=== PATIENT | female | born 1960 | race Caucasian/White ===

== ENCOUNTER 2024-05-24 08:15 | Outpatient (AMB) | payer MEDICAID, SELFPAY ==
--- NOTE | 2024-05-24 08:22 | ORTHONT_ITS ---
Vital signs 05/24/24 08:23 Height 1.55 m Height Method Stated Weight 73.227 kg Weight Measurement Method Standing Scale BMI 30.4 BP 161/86 H Blood Pressure Source Automatic Cuff Blood Pressure Location Right Upper Arm Position Sitting Respiration 18 Pulse 76 Pulse Source Monitor Temp 97.6 F Temp Source Temporal Artery Scan Pulse Oximetry (%) 95 Oxygen Delivery Method Room Air Med/Allergies Allergies & Medications Allergies No Known Allergies Allergy (Verified 05/24/24 08:24) Medication Reconciliation naproxen 500 mg tablet 500 mg PO BID PRN pain #30 tabs 03/16/20 [Rx Confirmed 05/24/24] Subjective Visit Visit for: new patient, hip and knee Immunization / Flu Flu Vaccine in the Last 12 Months: No Flu Vaccine Exclusion Criteria: Refused by Patient History of Present Illness Chief complaint: LEFT KNEE PAIN/LEFT HIP Jennifer is a pleasant 63-year-old female with left knee pain. This occurred 3 years ago after a patella fracture. She reports continued knee pain since then. She can only bend her knee about 40 degrees what she says. She has tried physical therapy, brace, injections, and Voltaren. The last x-rays I have are from 4 years ago Pain Pain level (0-10): 7 Pain duration: WITH MOVEMENT/BENDING Pain location: inside (medial) and outside (lateral) Pain quality: sharp, dull, aching, burning, shocking, electric and tingling Pain timing: night, increases with activity and stairs Associated signs & symptoms: none Ambulatory data Ambulatory device: other (specify) (KNEE BRACE) Treatments Number of previous injections: 1 Improvement with previous injections: No Number of Physical Therapy sessions: 12 Improvement with PT: No Improvement with NSAIDS: no Review of Systems Review of Systems: All systems negative unless otherwise noted in HPI. Exam Exam Patient is in no acute distress and is cooperative with the examination today. Breathing is nonlabored. Patient has a normal mood and affect. Bilateral extremities were evaluated and demonstrates sensation intact to light touch. Palpable pedal pulses are present. No significant edema is present. Bilateral hips were examined. The patient has no pain with log roll of the hips. Internal rotation to 30 degrees and external rotation to 30 degrees is painless. Negative FADIR. Right knee was examined today. The right knee is in reasonable alignment. Range of motion from 0-120 degrees. Knee is stable to varus and valgus as well as AP translation with <5mm. Patient has a negative McMurrays. There is no pain with patellofemoral compression and no crepitus noted. The knee is nontender to palpation. Left knee was examined today. Left knee range of motion is from 20 to 50 degrees. She is tender to palpation anteriorly. Extensor mechanism is intact Assessment and Plan Problem List (1) Pain in left knee: Status: Acute Plan: Patient is a 63-year-old female with left knee pain and a prior patella frac ture. She did not get surgery. This occurred 3 years ago and she has had persistent knee pain since then. We will need current x-rays to see what her knee looks like. A lot of her pain appears to be anterior. We will discuss different treatment options depending on what the x-rays show Office Procedures GNS Level of Care Nursing/Assessment Patient Status: Initial/New Patient Nursing Assessment/Reassesment: Medication Reconciliation, Update PMH in EMR and Vital Signs Coordination of Care: Complex Care and Chronic Disease 1-5, Education Complex Pt/Fam, Consent,records obtained, informed consent, 1 Ins Authorization, Lab and Imaging orders, Results/Orders obtained and Staff clarify orders New Patient Charge New Patient Point Assignment: 1124 New Patient Point Charge: [employer] MA[employer]GER Level 4 ([id number]) Past Medical History Past Medical History Have you ever been diagnosed with any of the following: Cardiology Problems Hypercholesterolemia: Yes Congestive Heart Failure: No Respiratory Problems Chronic Obstructive Pulmonary Disease (COPD): No Smoking: Yes (10 YEARS) Smoking Exposure: Yes Genital/Urinary Problems Renal Disease: No Endocrine Problems Diabetes Mellitus Type 1: No Diabetes Mellitus Type 2: No
[2024-05-24 08:23] VITALS: BP 161/86; PULSE 76; RESP 18; TEMP 36.4; O2SAT 95; BMI 30.4
== END 2024-05-24 08:39 | disposition home or self-care (01) ==
PROVIDERS: PCP Registered Nurse Home Health; Referring Provider Registered Nurse Home Health; Supervising Provider Orthopaedic Surgery Adult Reconstructive Orthopaedic Surgery; Visit Provider Orthopaedic Surgery Adult Reconstructive Orthopaedic Surgery
DX: M25.562 Pain in left knee (principal); S82.002D Unspecified fracture of left patella, subsequent encounter for closed fracture with routine healing; X58.XXXD Exposure to other specified factors, subsequent encounter; E78.00 Pure hypercholesterolemia, unspecified
CPT/HCPCS: 99204; G0463

== ENCOUNTER 2024-06-04 13:58 | Outpatient (AMB) | payer MEDICAID, SELFPAY ==
[2024-06-04 14:23] VITALS: BP 131/81; PULSE 84; RESP 19; TEMP 36.4; O2SAT 98; BMI 30.4
--- NOTE | 2024-06-04 14:23 | PD.ORTHCLVIS ---
Vital signs 06/04/24 14:23 Height 1.55 m Height Method Stated Weight 73.198 kg Weight Measurement Method Standing Scale BMI 30.4 BP 131/81 H Blood Pressure Source Automatic Cuff Blood Pressure Location Left Upper Arm Position Sitting Respiration 19 Pulse 84 Pulse Source Monitor Temp 97.5 F Temp Source Temporal Artery Scan Pulse Oximetry (%) 98 Oxygen Delivery Method Room Air Med/Allergies Allergies & Medications Allergies No Known Allergies Allergy (Verified 06/04/24 14:23) Medication Reconciliation naproxen 500 mg tablet 500 mg PO BID PRN pain #30 tabs 03/16/20 [Rx Confirmed 06/04/24] Subjective Visit Visit for: follow up visit, hip, knee and x-rays (results) Immunization / Flu Flu Vaccine in the Last 12 Months: No Flu Vaccine Exclusion Criteria: No Exclusion Criteria History of Present Illness Chief complaint: xray results/f.u knee/hip pain Jennifer is a pleasant 63-year-old female with left knee pain. This occurred 3 years ago after a patella fracture. She reports continued knee pain since then. She can only bend her knee about 40 degrees what she says. She has tried physical therapy, brace, injections, and Voltaren. Pain Pain level (0-10): 8 Pain duration: on and off Pain location: inside (medial) Pain quality: aching Pain timing: increases with activity Associated signs & symptoms: none Ambulatory data Ambulatory device: other (specify) (knee brace) Treatments Number of previous injections: 1 Improvement with previous injections: No Number of Physical Therapy sessions: 12 Improvement with PT: No Improvement with NSAIDS: no Review of Systems Review of Systems: All systems negative unless otherwise noted in HPI. Exam Exam Patient is in no acute distress and is cooperative with the examination today. Breathing is nonlabored. Patient has a normal mood and affect. Bilateral extremities were evaluated and demonstrates sensation intact to light touch. Palpable pedal pulses are present. No significant edema is present. Bilateral hips were examined. The patient has no pain with log roll of the hips. Internal rotation to 30 degrees and external rotation to 30 degrees is painless. Negative FADIR. Right knee was examined today. The right knee is in reasonable alignment. Range of motion from 0-120 degrees. Knee is stable to varus and valgus as well as AP translation with <5mm. Patient has a negative McMurrays. There is no pain with patellofemoral compression and no crepitus noted. The knee is nontender to palpation. Left knee was examined today. Left knee range of motion is from 20 to 50 degrees. She is tender to palpation anteriorly. Extensor mechanism is intact Assessment and Plan Problem List (1) Pain in left knee: Status: Acute Plan: Patient is a 63-year-old female with left knee pain and a prior patella fracture. She has moderate arthritis on x-ray. Her hip shows no significant pathology as well. I discussed with her that a stiff left knee is a problem and this likely occurred after immobilization from her prior patella fracture. I recommend therapy and nonoperative treatment. I do not have a great treatment option for her stiffness. She previously had an injection and got minimal relief with it Office Procedures GNS Level of Care Nursing/Assessment Patient Status: Established Patient Nursing Assessment/Reassesment: Medication Reconciliation, Update PMH in EMR and Vital Signs Coordination of Care: Complex Care and Chronic Disease 1-5, Education Complex Pt/Fam, Consent,records obtained, informed consent, Results/Orders obtained and Staff clarify orders Established Patient Charge Established Patient Point Assignment: 95 Established Patient Point Charge: EP Level 3 (80-115) Past Medical History Past Medical History Have you ever been diagnosed with any of the following: Cardiology Problems Hypercholesterolemia: Yes Congestive Heart Failure: No Respiratory Problems Chronic Obstructive Pulmonary Disease (COPD): No Smoking: Yes (10 YEARS) Smoking Exposure: Yes Genital/Urinary Problems Renal Disease: No Endocrine Problems Diabetes Mellitus Type 1: No Diabetes Mellitus Type 2: No
== END 2024-06-04 14:44 | disposition home or self-care (01) ==
LOC: HODSRG 13:58
PROVIDERS: PCP Registered Nurse Home Health; Referring Provider Registered Nurse Home Health; Supervising Provider Orthopaedic Surgery Adult Reconstructive Orthopaedic Surgery; Visit Provider Orthopaedic Surgery Adult Reconstructive Orthopaedic Surgery
DX: M25.562 Pain in left knee (principal); E78.00 Pure hypercholesterolemia, unspecified
CPT/HCPCS: 99213; G0463

== ENCOUNTER → 2024-07-17 | Outpatient (CLI) | payer MEDICAID, SELFPAY ==
--- NOTE | 2024-07-17 08:26 | XR_ITS ---
Examination: Left ankle 2 views Technique one AP lateral left ankle 2 views Exam date and time: July 17, 2024 0848 hours INDICATIONS: Ankle pain beginning one month ago no trauma FINDINGS: Mild narrowing tibiotalar joint No fracture 8 mm posterior bony calcaneal spur IMPRESSION: 8 mm posterior bony calcaneal spur
--- NOTE | 2024-07-17 08:27 | XR_ITS ---
Examination: Thoracic spine 3 views Technique one AP lateral coned lateral upper dorsal spine 3 views Exam date and time: July 17, 2024 0845 hours INDICATIONS: Upper back pain 2 months. FINDINGS: Moderate osteopenia Thoracic dextroscoliosis 12 degrees No thoracic fracture Mild diffuse thoracic degenerative disc disease IMPRESSION: Thoracic dextroscoliosis 12 degrees Mild diffuse thoracic degenerative disc disease
--- NOTE | 2024-07-17 08:27 | XR_ITS ---
Examination: Lumbar spine, 5 views Technique: Lumbar spine AP, lateral, coned lateral lower lumbar spine, bilateral obliques 5 views Exam date and time: July 17, 2024 0838 hours INDICATIONS: Lower back pain beginning 2 months ago. FINDINGS: Prominent osteopenia Moderate narrowing hip joints Diffuse moderate facet arthropathy No lumbar fracture Moderate degenerative disc disease L2-L3, L5-S1 No spondylolisthesis IMPRESSION: Moderate degenerative disc disease L2-L3, L5-S1
== END | disposition home or self-care (01) ==
LOC: CDIM 08:22
PROVIDERS: PCP Physician Assistant; Referring Provider Physician Assistant; Visit Provider Physician Assistant
DX: M51.369 Other intervertebral disc degeneration, lumbar region without mention of lumbar back pain or lower extremity pain (principal); M51.379 Other intervertebral disc degeneration, lumbosacral region without mention of lumbar back pain or lower extremity pain; M41.84 Other forms of scoliosis, thoracic region; M51.34 Other intervertebral disc degeneration, thoracic region; M77.32 Calcaneal spur, left foot
CPT/HCPCS: 72070; 72110; 73600

== ENCOUNTER → 2024-09-23 | Outpatient (CLI) | payer MEDICAID, SELFPAY ==
--- NOTE | 2024-09-23 09:21 | XR_ITS ---
Examination: PA lateral chest 2 views TECHNIQUE: Upright PA lateral chest 2 views Exam date and time: September 23, 2024 0938 hours INDICATIONS: Coughing several months FINDINGS: Normal heart size. Lungs are clear. Moderate osteopenia IMPRESSION: No active disease
== END | disposition home or self-care (01) ==
PROVIDERS: PCP Nurse Practitioner Primary Care; Referring Provider Nurse Practitioner Primary Care; Visit Provider Nurse Practitioner Primary Care
DX: R05.9 Cough, unspecified (principal); F17.200 Nicotine dependence, unspecified, uncomplicated
CPT/HCPCS: 71046

== ENCOUNTER → 2024-11-27 | Outpatient (CLI) | payer MEDICAID, SELFPAY ==
--- NOTE | 2024-11-27 14:00 | XR_ITS ---
Examination: Screening digital mammography, bilateral Computer aided detection 3-D breast Tomosynthesis, bilateral Date and time of exam: November 27, 2024 1339 hours Indication: Screening Technique: Nonmagnified MLO, CC views of the breasts to been obtained, reconstructed from 3-D Tomosynthesis images. R2 computer aided detection program utilized for evaluation of suspicious masses and/or abnormal calcifications. 3-D Tomosynthesis images obtained. Findings: The breasts are heterogeneously dense, which may obscure small masses 13 mm nodule lobular margins 12:00 position left breast Impression: BI-RADS Category 0: Incomplete: Need additional imaging evaluation Recommend follow-up spot tomographic views of third millimeters nodule 12:00 position left breast as well as bilateral breast sonography to complete workup
== END | disposition home or self-care (01) ==
PROVIDERS: PCP Physician Assistant; Referring Provider Physician Assistant; Visit Provider Physician Assistant
DX: Z12.31 Encounter for screening mammogram for malignant neoplasm of breast (principal); N63.25 Unspecified lump in the left breast, overlapping quadrants; R92.8 Other abnormal and inconclusive findings on diagnostic imaging of breast
CPT/HCPCS: 77063; 77067